=== PATIENT | male | born 1930 | race Caucasian/White ===

== ENCOUNTER 2016-08-31 16:47 | Emergency (ER) | payer MEDICARE, OTHER ==
[~2016-08-31] VITALS: Ht 175.3 cm; Wt 96.5 kg
[2016-08-31 16:50] VITALS: BP_DIAS 70
[2016-08-31] MEDS ORDERED: LIRA0.6P SC (17:59)
[2016-08-31] MEDS ORDERED: METF500T4 PO (17:59)
[2016-08-31] MEDS ORDERED: LEVO50TA PO (17:59)
[2016-08-31] MEDS ORDERED: TADA5TAB2 PO (18:00)
[2016-08-31] MEDS ORDERED: ESOM40CA PO (18:00)
[2016-08-31] MEDS ORDERED: BACITRACIN ZINC OINT 500U/GM, 0.9 GM ONE (19:11)
[2016-08-31 19:28] VITALS: BP_SYST 122
== END 2016-08-31 19:30 | disposition home or self-care (01) ==
LOC: ED 19:24
DX: S61.011A Laceration without foreign body of right thumb without damage to nail, initial encounter (principal); S29.011A Strain of muscle and tendon of front wall of thorax, initial encounter; E11.9 Type 2 diabetes mellitus without complications; M79.601 Pain in right arm; W18.09XA Striking against other object with subsequent fall, initial encounter; Y93.89 Activity, other specified; Y99.9 Unspecified external cause status; Y92.410 Unspecified street and highway as the place of occurrence of the external cause
CPT/HCPCS: 12001; 99284

== ENCOUNTER 2018-03-18 00:28 | Inpatient (IN) | payer MEDICARE, OTHER ==
[~2018-03-18] VITALS: Ht 172.7 cm; Wt 96.0 kg
[~2018-03-18 00:28] MED LIST: ESOM40CA PO; LEVO50TA PO; LIRA0.6P SC; METF500T17 PO; TADA5TAB2 PO
[2018-03-18] MEDS ORDERED: ONDANSETRON 2MG/ML, 2ML IVPush ONE (01:00)
[2018-03-18] MEDS ORDERED: MORPHINE SULFATE 4 MG/ML, 1ML IVPush PRN ×2 (01:00→03:30)
[2018-03-18] MEDS ORDERED: KETOROLAC 30 MG/1 ML IVPush ONE (01:00)
[2018-03-18] MEDS ORDERED: LIDOCAINE 1%, 10ML INFIL ONE (01:00)
[2018-03-18] MEDS ORDERED: SODIUM CHLORIDE FLUSH 10ML SYR IVF ONE (01:00)
[2018-03-18] MEDS ORDERED: ONDANSETRON 2MG/ML, 2ML ONE (01:10)
[2018-03-18] MEDS ORDERED: KETOROLAC 30 MG/1 ML ONE (01:11)
[2018-03-18] MEDS ORDERED: MORPHINE SULFATE 4 MG/ML, 1ML ONE (01:11)
[2018-03-18] MEDS ORDERED: LIDOCAINE-MPF 1%, 5ML ONE (01:11)
[2018-03-18 01:25] LABS: MEAN CORPUSCULAR HEMOGLOBIN 32.7 pg (27.5-34.5); MEAN CORPUSCULAR HGB CONC 33.7 g/dL (33.2-36.2); MEAN CORPUSCULAR VOLUME 97.2 fL (81-97); MEAN PLATELET VOLUME 8.1 fL (7.4-10.4); PLATELET COUNT 320 x10^3/uL (130-400); RED BLOOD COUNT 4.68 x10^6/uL (4.38-5.82); RED CELL DISTRIBUTION WIDTH 15.1 % (9.4-14.8)
[2018-03-18 01:32] LABS: ALANINE AMINOTRANSFERASE 31 U/L (12-78); ALBUMIN 3.4 g/dL (3.4-5.0); ANION GAP 9 mmol/L (5-15); CALCIUM 8.9 mg/dL (8.5-10.1); CHLORIDE 104 mmol/L (98-107); CREATININE 0.94 mg/dL (0.7-1.3)
[2018-03-18 01:34] LABS: ALKALINE PHOSPHATASE 72 U/L (45-117); BILIRUBIN,TOTAL 1.1 mg/dL (0.2-1.0); TOTAL PROTEIN 7.9 g/dL (6.4-8.2)
[2018-03-18 01:45] LABS: BASOPHILS # (AUTO) 0.05 x10^3/uL (0-0.1); BASOPHILS % (AUTO) 0 % (0-1); EOSINOPHILS # (AUTO) 0.11 x10^3/uL (0-0.4); EOSINOPHILS % (AUTO) 1 % (1-7); LYMPHOCYTES # (AUTO) 1.88 x10^3/uL (1-3.4); LYMPHOCYTES % (AUTO) 16 % (22-44); MD SCAN; MONOCYTES # (AUTO) 1.63 x10^3/uL (0.2-0.8); MONOCYTES % (AUTO) 14 % (2-9); NEUTROPHILS # (AUTO) 8.25 x10^3/uL (1.8-6.8); NEUTROPHILS % (AUTO) 69 % (42-75)
[2018-03-18] MEDS ORDERED: CEFTRIAXONE PMX 2GM/50ML 50 ML IV SCH (03:00)
[2018-03-18] MEDS ORDERED: VANCOMYCIN 1,800 MG in SODIUM CHLORIDE 0.9% 250 ML IV ONE (03:00)
[2018-03-18] MEDS ORDERED: VANCOMYCIN PER PHARMACY MC PRN (03:00)
[2018-03-18] MEDS ORDERED: CEFTRIAXONE PMX 2GM/50ML 50 ML ONE (03:22)
[2018-03-18] MEDS ORDERED: POTASSIUM CHLORIDE 20 MEQ in SODIUM CHLORIDE 0.9% 1,000 ML IV ONE (03:25)
[2018-03-18] MEDS ORDERED: SODIUM CHLORIDE FLUSH 10ML SYR IVF PRN (03:30)
[2018-03-18] MEDS ORDERED: ONDANSETRON 2MG/ML, 2ML IVPush PRN (03:30)
[2018-03-18] MEDS ORDERED: CALC-118 PO (03:38)
[2018-03-18] MEDS ORDERED: ASCO-96 PO (03:38)
[2018-03-18] MEDS ORDERED: NS + 20MEQ KCL 1,000 ML IV ONE (04:55)
[2018-03-18 06:17] VITALS: BP 133/97
[2018-03-18 07:16] VITALS: BP 131/72
[2018-03-18] MEDS ORDERED: ZOLPIDEM 5MG TABLET PO PRN (10:00)
[2018-03-18] MEDS ORDERED: BISACODYL 10 MG SUPP PR PRN (10:00)
[2018-03-18] MEDS ORDERED: POLYETHYLENE GLYCOL 17 GM PACKET PO PRN (10:00)
[2018-03-18] MEDS: INSULIN LISPRO 100 UNITS/ML, PEN SQ-INSULIN SCH ×3 (11:00→21:00)
[2018-03-18 13:59] VITALS: BP 109/73
[2018-03-18] MEDS ORDERED: LIDOCAINE-MPF 2% ,5ML ONE (17:23)
[2018-03-18] MEDS ORDERED: LIDOCAINE 2%, 10ML ONE (17:23)
[2018-03-18 19:04] VITALS: BP 118/70
[2018-03-18 19:07] LABS: GLUCOSE, CSF 66 mg/dL (40-80); TOTAL PROTEIN,CSF 59 mg/dL (15-45)
[2018-03-18] MEDS: metFORMIN 500 MG TABLET PO SCH (21:08)
[2018-03-19 00:53] VITALS: BP 155/114
[2018-03-19 02:05] VITALS: BP 121/76
[2018-03-19 05:43] LABS: BASOPHILS # (AUTO) 0.04 x10^3/uL (0-0.1); BASOPHILS % (AUTO) 0 % (0-1); EOSINOPHILS # (AUTO) 0.13 x10^3/uL (0-0.4); EOSINOPHILS % (AUTO) 1 % (1-7); LYMPHOCYTES # (AUTO) 1.64 x10^3/uL (1-3.4); LYMPHOCYTES % (AUTO) 15 % (22-44); MD NO; MEAN CORPUSCULAR HEMOGLOBIN 32.9 pg (27.5-34.5); MEAN CORPUSCULAR HGB CONC 33.3 g/dL (33.2-36.2); MEAN CORPUSCULAR VOLUME 98.8 fL (81-97); MEAN PLATELET VOLUME 8.4 fL (7.4-10.4); MONOCYTES # (AUTO) 1.22 x10^3/uL (0.2-0.8); MONOCYTES % (AUTO) 11 % (2-9); NEUTROPHILS # (AUTO) 8.17 x10^3/uL (1.8-6.8); NEUTROPHILS % (AUTO) 73 % (42-75); PLATELET COUNT 340 x10^3/uL (130-400); RED BLOOD COUNT 4.48 x10^6/uL (4.38-5.82); RED CELL DISTRIBUTION WIDTH 15.3 % (9.4-14.8)
[2018-03-19 05:48] LABS: ALBUMIN 3.1 g/dL (3.4-5.0); ANION GAP 9 mmol/L (5-15); CALCIUM 8.9 mg/dL (8.5-10.1); CHLORIDE 104 mmol/L (98-107)
[2018-03-19 06:00] LABS: ALANINE AMINOTRANSFERASE 29 U/L (12-78); ALKALINE PHOSPHATASE 72 U/L (45-117); CREATININE 0.96 mg/dL (0.7-1.3); TOTAL PROTEIN 7.8 g/dL (6.4-8.2)
[2018-03-19] MEDS: LEVOTHYROXINE 25 MCG TABLET PO SCH (06:09)
[2018-03-19 06:19] LABS: HEMOGLOBIN A1C 5.6 % (4.2-6.3)
[2018-03-19 06:40] VITALS: BP 135/75
[2018-03-19] MEDS: INSULIN LISPRO 100 UNITS/ML, PEN SQ-INSULIN SCH ×2 (07:00→11:00)
[2018-03-19] MEDS: metFORMIN 500 MG TABLET PO SCH ×2 (08:28→22:48)
[2018-03-19] MEDS: LIRAGLUTIDE SC SCH ×2 (08:28→16:30)
[2018-03-19 12:05] VITALS: BP 125/79
[2018-03-19 18:38] VITALS: BP 122/74
[2018-03-20 00:58] VITALS: BP 119/72
[2018-03-20] MEDS: LEVOTHYROXINE 25 MCG TABLET PO SCH (05:20)
[2018-03-20 06:55] VITALS: BP 126/78
[2018-03-20] MEDS: metFORMIN 500 MG TABLET PO SCH (07:36)
== END 2018-03-20 10:00 | disposition home or self-care (01) | DRG 552 ==
LOC: ED 00:57 → EDIP 03:25 → 4NOR 05:45 → DCLOUNGE 03-20 09:45
PROVIDERS: ADMIT Internal Medicine; ATTEND Internal Medicine
PROC: 009U3ZX Drainage of Spinal Canal, Percutaneous Approach, Diagnostic (ICD-10-PCS; principal; 2018-03-18)
PROC: B01B1ZZ Fluoroscopy of Spinal Cord using Low Osmolar Contrast (ICD-10-PCS; 2018-03-18)
PROC: 00JU3ZZ Inspection of Spinal Canal, Percutaneous Approach (ICD-10-PCS; 2018-03-18)
DX: M46.92 Unspecified inflammatory spondylopathy, cervical region (principal); M48.02 Spinal stenosis, cervical region; E11.9 Type 2 diabetes mellitus without complications; I10 Essential (primary) hypertension; I35.0 Nonrheumatic aortic (valve) stenosis; I70.0 Atherosclerosis of aorta; S16.1XXA Strain of muscle, fascia and tendon at neck level, initial encounter; X58.XXXA Exposure to other specified factors, initial encounter; Y93.89 Activity, other specified; Y92.89 Other specified places as the place of occurrence of the external cause; Y99.8 Other external cause status; Z86.61 Personal history of infections of the central nervous system; G43.C0 Periodic headache syndromes in child or adult, not intractable
CPT/HCPCS: 36415; 62270; 70450; 72125; 80053; 82945; 82962; 83036; 84157; 84443; 85025; 87040; 87070; 87205; 87252; 89051; 93005; 96374; 96375; G0378; J0696; J1885; J2001; J2405; J3370; J3480; J3490; J7030; J7050; J7512

== ENCOUNTER → 2018-05-10 | Outpatient (CLI) | payer MEDICARE, OTHER ==
[~2018-05-10] MED LIST changes: +ASCO-96 PO; +CALC-118 PO
== END | disposition home or self-care (01) ==
LOC: CVU 13:27
PROVIDERS: ATTEND Internal Medicine Cardiovascular Disease
DX: I65.23 Occlusion and stenosis of bilateral carotid arteries (principal); I35.0 Nonrheumatic aortic (valve) stenosis; E78.5 Hyperlipidemia, unspecified; E11.9 Type 2 diabetes mellitus without complications
CPT/HCPCS: 93306; 93880

== ENCOUNTER 2018-05-26 13:26 | Outpatient (CLI) | payer MEDICARE, OTHER ==
[2018-05-26] MEDS ORDERED: VITA1TAB19 PO (14:11)
[2018-05-26 14:37] LABS: BASOPHILS # (AUTO) 0.05 x10^3/uL (0-0.1); BASOPHILS % (AUTO) 1 % (0-1); EOSINOPHILS # (AUTO) 0.09 x10^3/uL (0-0.4); EOSINOPHILS % (AUTO) 1 % (1-7); LYMPHOCYTES # (AUTO) 2.67 x10^3/uL (1-3.4); LYMPHOCYTES % (AUTO) 29 % (22-44); MD NO; MEAN CORPUSCULAR HGB CONC 33.4 g/dL (33.2-36.2); MEAN CORPUSCULAR VOLUME 95.6 fL (81-97); MEAN PLATELET VOLUME 8.2 fL (7.4-10.4); MONOCYTES # (AUTO) 1.04 x10^3/uL (0.2-0.8); MONOCYTES % (AUTO) 11 % (2-9); NEUTROPHILS % (AUTO) 59 % (42-75); PLATELET COUNT 273 x10^3/uL (130-400); RED BLOOD COUNT 4.86 x10^6/uL (4.38-5.82); RED CELL DISTRIBUTION WIDTH 14.9 % (9.4-14.8)
[2018-05-26 14:40] LABS: INTERNATIONAL NORMALIZED RATIO 1.04 (0.93-1.1)
[2018-05-26 14:42] LABS: ANION GAP 8 mmol/L (5-15); CALCIUM 9.2 mg/dL (8.5-10.1); CHLORIDE 108 mmol/L (98-107); CREATININE 0.92 mg/dL (0.7-1.3)
[2018-05-30] MEDS ORDERED: CALC-116 PO (09:32)
[2018-05-30] MEDS ORDERED: OMEG-14 PO (09:32)
[2018-05-30] MEDS ORDERED: MULT-717 PO (09:32)
[2018-05-31] MEDS ORDERED: TICA90TA PO (10:40)
[2018-05-31] MEDS ORDERED: ASPI81TA45 PO (10:40)
== END 2018-05-26 23:59 | disposition home or self-care (01) ==
LOC: STAR 13:26
PROVIDERS: ATTEND Internal Medicine Cardiovascular Disease
DX: Z01.818 Encounter for other preprocedural examination (principal)
CPT/HCPCS: 36415; 80048; 85025; 85610

== ENCOUNTER 2018-06-05 10:27 | Outpatient (CLI) | payer MEDICARE, OTHER ==
[~2018-06-05 10:27] MED LIST changes: +ASPI81TA45 PO; +CALC-116 PO; +MULT-717 PO; +OMEG-14 PO; +TICA90TA PO; +VITA1TAB19 PO
[2018-06-05] MEDS ORDERED: METOPROLOL 1 MG/ML, 5ML ONE (11:48)
[2018-06-05] MEDS ORDERED: OMNIPAQUE 350 MG/ML, 100ML BOTTLE ONE (12:01)
[2018-06-05] MEDS ORDERED: OMNIPAQUE 350 MG/ML, 50 ML BOTTLE ONE (12:10)
== END 2018-06-05 23:59 | disposition home or self-care (01) ==
LOC: RAD 10:27
PROVIDERS: ATTEND Internal Medicine Cardiovascular Disease
DX: I77.810 Thoracic aortic ectasia (principal); N40.0 Benign prostatic hyperplasia without lower urinary tract symptoms; J98.11 Atelectasis; I35.0 Nonrheumatic aortic (valve) stenosis; M43.26 Fusion of spine, lumbar region
CPT/HCPCS: 71275; 74174; 94060; 94726; 94729; Q9967

== ENCOUNTER 2018-09-29 11:03 | Emergency (ER) | payer MEDICARE, OTHER ==
[~2018-09-29] VITALS: Ht 172.7 cm; Wt 93.0 kg
[~2018-09-29 11:03] MED LIST changes: +ACET325T14 PO
--- NOTE | 2018-09-29 11:19 | NUR ---
PATIENT SENT BY CALL OR CONTACT CENTRE MANAGER, PATIENT HAD 2 FACIAL BIOPSYS YESTERDAY, PATIENT REPORTS BLEEDING HASN'T STOPPED, PATIENT TAKING BLOOD THINNER FOR CARDIAC STENT IN MAY. SPOUSE AT BEDSIDE, PA STUDENT AT BEDSIDE. AWAITING ORDERS, CALL LIGHT WITHIN REACH.
[2018-09-29] MEDS ORDERED: L.E.T SOLUTION TP ONE ×4 (11:30→12:22)
[2018-09-29 12:57] VITALS: BP 140/73
--- NOTE | 2018-09-29 12:58 | NUR ---
Break Coverage: assumed care of tp for primary RN break only. pt resting in no apaprent distress. Let gauze in place. updated on POC
[2018-09-29] MEDS ORDERED: BACITRACIN ZINC OINT 500U/GM, 0.9 GM ONE (13:14)
[2018-09-29] MEDS ORDERED: SILVER NITRATE STICK TP ONE ×2 (13:14→13:30)
--- NOTE | 2018-09-29 13:32 | NUR ---
Patient/Caregiver given discharge instructions and they have confirmed that they understand the instructions. Patient ambulatory with steady gait with cane to DC desk with spouse.
== END 2018-09-29 13:34 | disposition home or self-care (01) ==
LOC: ED 13:03
DX: L76.22 Postprocedural hemorrhage of skin and subcutaneous tissue following other procedure (principal); K21.9 Gastro-esophageal reflux disease without esophagitis; E11.9 Type 2 diabetes mellitus without complications
CPT/HCPCS: 99283

== ENCOUNTER 2018-09-29 18:20 | Emergency (ER) | payer MEDICARE, OTHER ==
[~2018-09-29] VITALS: Ht 172.7 cm; Wt 93.2 kg
[2018-09-29 18:30] VITALS: BP 129/79
--- NOTE | 2018-09-29 18:49 | NUR ---
REPORT TO MARY CARDOZA WHO ASSUMED CARE OF PT.
[2018-09-29] MEDS ORDERED: MICROFIBRILLAR COLLAGEN 1 GM TP ONE (19:14)
[2018-09-29] MEDS ORDERED: BACITRACIN ZINC OINT 500U/GM, 0.9 GM ONE (19:21)
== END 2018-09-29 19:34 | disposition home or self-care (01) ==
LOC: ED 19:30
DX: S01.01XA Laceration without foreign body of scalp, initial encounter (principal); S01.412A Laceration without foreign body of left cheek and temporomandibular area, initial encounter; E11.9 Type 2 diabetes mellitus without complications; X58.XXXA Exposure to other specified factors, initial encounter; Y93.89 Activity, other specified; Y92.89 Other specified places as the place of occurrence of the external cause; Y99.8 Other external cause status
CPT/HCPCS: 12051

== ENCOUNTER → 2019-08-07 | Outpatient (CLI) | payer MEDICARE, OTHER | END | disposition home or self-care (01) | LOC: CVU 10:27 | PROVIDERS: ATTEND Internal Medicine Cardiovascular Disease | DX: I08.1 Rheumatic disorders of both mitral and tricuspid valves (principal); I65.29 Occlusion and stenosis of unspecified carotid artery | CPT/HCPCS: 93306 ==